=== PATIENT | female | born 1975 | race Two or more races ===

== ENCOUNTER 2018-08-20 12:57 | Emergency (ER) | payer OTHER ==
[2018-08-20 13:04] VITALS: TEMP 98.1; BMI 29.2
--- NOTE | 2018-08-20 13:13 | PDOC ---
Attending Attestation - Resident Resident Name: Carlita Chow - ED Attending Attestation I have performed the following: I have examined & evaluated the patient, The case was reviewed & discussed with the resident, I agree w/resident's findings & plan, Exceptions are as noted - HPI HPI: 08/20/18 13:45 Agree with Residents HPI - Physicial Exam PE: 08/20/18 13:45 Agree with Residents PE - Medical Decision Making 08/20/18 14:10 43 years old history of migraines took one of her sons migraine medication after which time she developed sensation of palpitations and anxiety Called her friend who is a triage nurse regarding if this was an ALLERGIC reaction and came to the ED upon arrival to the ED vital signs stable no difficulty breathing no rash no stridor no respiratory difficulty History examination this time consistent with stress reaction versus adverse reaction to medication. Patient instructed to avoid taking medications on prescribed her in the future Findings, need for follow-up and strict return instructions discussed with patient.
--- NOTE | 2018-08-20 13:13 | PDOC ---
History of Present Illness - General Chief Complaint: Allergic Reaction Stated Complaint: ALLERGIC REACTION Time Seen by Provider: 08/20/18 13:07 - History of Present Illness Initial Comments: 43yo with PMH of hyperthyroidism, hyperprolactinemia, and cervical spine surgery on 08/07 presenting after adverse medication reaction. Patient took 1 percocet for her surgery around 10. Patient had a headache so took her sons migraine medication, 0.5 of sumatriptan, around 11:20am. Shortly after, she reports feeling lightheaded, shaky, and hot. Spoke with a triage nurse on the phone who advised that she go to her primary care doctor. Patient felt she would not make it to her doctors office in time and decided to come to the ED. Denies chest pain, shortness of breath, abdominal pain, or focal neurologic deficits. Feeling gradual relief of her symptoms, but says she does not feel like herself. Past History - Past Medical History COPD: No DVT: No Dementia: No - Immunization History Immunization Up to Date: No - Suicide/Smoking/Psychosocial Hx Smoking History: Never smoked Hx Alcohol Use: No Drug/Substance Use Hx: No Substance Use Type: None Review of Systems - Review of Systems Comments:: Constitutional: no fever, no chills HEENT: no throat pain, no dysphagia Cardiovascular: no chest pain, no palpitations Respiratory: no cough, no shortness of breath Gastrointestinal: no abdominal pain, +nausea, no vomiting Musculoskeletal: no myalgia, no arthralgia Skin: no rash, no itching Neurologic: no headache, +lightheadedness *Physical Exam - Vital Signs Last Vital Signs Temp Pulse Resp BP Pulse Ox 98.1 F 99 H 17 151/95 100 08/20/18 13:01 08/20/18 13:01 08/20/18 13:01 08/20/18 13:01 08/20/18 13:01 - Physical Exam Comments: General: Awake, alert, and fully oriented, in no acute distress Head: no signs of trauma Eyes: EOMI, sclera anicteric ENT: Moist mucus membranes, Neck: Normal ROM, supple Lungs: Lungs clear, Normal breath sounds Cardio: Regular rhythm, S1 and S2 present Abdomen: Soft, nontender. Extremities: Normal range of motion, Distal pulses present SKIN: Warm, Dry, normal turgor Neurologic: Cranial nerves II through XII grossly intact. Normal speech Medical Decision Making - Medical Decision Making 43yo with PMH of hyperthyroidism, hyperprolactinemia, and cervical spine surgery on 08/07 presenting after adverse medication reaction vs panic attack. Patient is non-toxic appearing with benign physical exam. We will treat her with supportive care and reassess. -Heather woodward 08/20/18 14:05 *DC/Admit/Observation/Transfer Diagnosis at time of Disposition: Lightheadedness - Discharge Dispostion Disposition: HOME Condition at time of disposition: Stable - Referrals - Patient Instructions Printed Discharge Instructions: DI for Adverse Drug Reaction -- Other Additional Instructions: You came into the ED for an adverse medication reaction. Avoid taking these medicines concurrently in order to prevent drug interaction. Call for emergency medical services or go to the emergency room right away for: trouble breathing, throat swelling, rapid irregular heartbeat or chest pain, fainting, confusion, skin blisters, or any new or concerning symptoms. If you think you have an emergency, call for emergency medical services right away. - Post Discharge Activity
[2018-08-20] MEDS ORDERED: ONDANSETRON 4 MG TABLET PO ONE (14:04)
[2018-08-20] MEDS ORDERED: ONDANSETRON *ODT* 4 MG TABLET ONE (14:16)
[2018-08-20 14:19] VITALS: BP 140/85; PULSE 85
== END 2018-08-20 14:22 | disposition home or self-care (01) ==
LOC: JER 12:57
DX: R42 Dizziness and giddiness (principal); T39.8X5A Adverse effect of other nonopioid analgesics and antipyretics, not elsewhere classified, initial encounter; Y92.018 Other place in single-family (private) house as the place of occurrence of the external cause; E05.90 Thyrotoxicosis, unspecified without thyrotoxic crisis or storm; E22.1 Hyperprolactinemia
CPT/HCPCS: 99282-25